=== PATIENT | female | born 1940 | race Caucasian/White ===

== ENCOUNTER 2018-07-31 19:51 | Emergency (ER) | payer MEDICARE, OTHER ==
[~2018-07-31] VITALS: Ht 167.6 cm; Wt 75.0 kg
[~2018-07-31 19:51] MED LIST: ARTHROTEC EC 71 EACH PO; CALCIUM 600+D T1 TA1 PO; COUMADIN5 MG PO; LIPITOR20 MG PO; MS CONTIN15 MG PO; NORCO 10/325 TA1 TA1 PO; NORCO 5/325 TAB1 TA1 PO; PLENDIL5 MG PO; PROPRANOLOL HCL20 MG PO; ULTRAM50 MG PO; ZOLOFT100 MG PO
[2018-07-31 20:04] VITALS: Ht 167.6 cm; Wt 75.0 kg
[2018-07-31] MEDS ORDERED: HYDROCODON-ACE1 EAC2 PO (22:39)
[2018-07-31 23:05] VITALS: BP 119/48
== END 2018-07-31 23:05 | disposition home or self-care (01) ==
LOC: D.ER 19:51
DX: S43.004A Unspecified dislocation of right shoulder joint, initial encounter (principal); W18.30XA Fall on same level, unspecified, initial encounter; Y93.89 Activity, other specified; Y92.019 Unspecified place in single-family (private) house as the place of occurrence of the external cause

== ENCOUNTER 2018-08-06 09:35 | Emergency (ER) | payer MEDICARE, OTHER ==
[~2018-08-06] VITALS: Ht 167.6 cm; Wt 75.0 kg
[~2018-08-06 09:35] MED LIST changes: +HYDROCODON-ACE1 EAC2 PO
[2018-08-06 09:40] VITALS: Ht 167.6 cm; Wt 75.0 kg
[2018-08-06 12:15] VITALS: BP 120/60
== END 2018-08-06 12:15 | disposition home or self-care (01) ==
LOC: D.ER 09:35
DX: S43.004A Unspecified dislocation of right shoulder joint, initial encounter (principal); X58.XXXA Exposure to other specified factors, initial encounter; Y93.89 Activity, other specified; Y92.019 Unspecified place in single-family (private) house as the place of occurrence of the external cause; I10 Essential (primary) hypertension

== ENCOUNTER → 2018-08-10 14:15 | Outpatient (CLI) | payer MEDICARE, OTHER ==
[2018-08-06 09:40] VITALS: BMI 26.7
== END | disposition home or self-care (01) ==
LOC: D.LABREF 14:15
DX: M25.511 Pain in right shoulder (principal); Z11.8 Encounter for screening for other infectious and parasitic diseases

== ENCOUNTER 2018-08-11 15:14 | Inpatient (IN) | payer MEDICARE, OTHER ==
[~2018-08-11] VITALS: Ht 165.1 cm; Wt 73.5 kg
[2018-08-26] MEDS ORDERED: OMEPRAZOLE40 MG PO (09:48)
[2018-08-26] MEDS ORDERED: BAYER CHEWABLE81 MG PO (09:48)
[2018-08-26] MEDS ORDERED: VOLTAREN75 MG PO (09:49)
[2018-08-26] MEDS ORDERED: FIBER-TABS625 MG PO (09:49)
[2018-08-26] MEDS ORDERED: IMODIUM2 MG PO (09:49)
[2018-08-26 10:41] LABS: BASOPHILS 0.3 % (0-2); EOSINOPHILS 1.9 % (0-7); HEMATOCRIT 42.5 % (36.0-48.0); HEMOGLOBIN 13.8 g/dL (12-16); IMMATURE GRANULOCYTES 0.2 % (0-5); LYMPHOCYTES 27.2 % (15-50); MCH 30.3 pg (26.0-34.0); MCHC 32.5 g/dL (31.0-37.0); MCV 93.2 fL (80.0-100.0); MEAN PLATELET VOLUME 10.7 fL (7.4-10.4); MONOCYTES 10.3 % (2-11); NEUTROPHILS 60.1 % (40-80); RBC 4.56 10x6/uL (4.00-5.40); RDW 14.7 % (11.5-14.5); WBC 5.9 10x3/uL (4.8-10.8)
[2018-08-26 10:42] LABS: PLATELET COUNT 188 10x3/uL (130-400)
[2018-08-26 10:50] LABS: ANION GAP 13.1 mmol/L (8-16); APTT 26.9 SECONDS (22.8-39.4); CALCIUM 8.5 mg/dL (8.5-10.1); CARBON DIOXIDE 28.5 mmol/L (21.0-32.0); INR 1.07 (0.85-1.17); POTASSIUM - SERUM 3.6 mmol/L (3.5-5.1); PROTIME 13.4 SECONDS (11.6-15.0)
[2018-08-26 12:39] LABS: APPEARANCE HAZY (CLEAR); BILIRUBIN NEGATIVE (NEGATIVE); COLOR YELLOW (YELLOW); EPITHELIAL CELLS 0-5 /hpf (0-5); GLUCOSE NEGATIVE (NEGATIVE); KETONE NEGATIVE (NEGATIVE); NITRITE NEGATIVE (NEGATIVE); PROTEIN NEGATIVE (NEGATIVE); RED CELLS - URINE 0-5 /hpf (0-5); SPECIFIC GRAVITY 1.015 (1.005-1.020); UROBILINOGEN NORMAL (NORMAL)
[2018-08-26 12:40] LABS: BACTERIA MODERATE /hpf (NONE SEEN); MUCUS <1+ /lpf (NONE SEEN); WHITE CELLS - URINE OCC /hpf (0-5)
--- NOTE | 2018-08-26 15:44 | NUR ---
1530-DR GUZMAN NOTIFIED OF PRE-OP UA RESULTS. HE SAYS PROCEED WITH SURGERY, NO NEED FOR ANTIBIOTICS.
[2018-08-30] VITALS (14 sets, daily range): BP systolic 91–124; BP diastolic 55–73; BMI 27.6; BMI 27.0
[2018-08-30] MEDS ORDERED: SULFAMETHOXAZOL1 TA3 PO (05:34)
--- NOTE | 2018-08-30 08:25 | NUR ---
PLASMA BLADE SET 6/8 BOVIE PAD RIGHT THIGH [id number] 05/20/2020
--- NOTE | 2018-08-30 10:30 | NUR ---
RECEIVED TO ROOM 2210 VIA BED FROM PACU. ROUSES EASILY TO VERBAL STIMULATION. DRESSING TO RIGHT SHOULDER DRY AND INTACT. REPORTS PAIN LEVEL 2. DENIES NEEDS. SKIN INTACT OTHERWISE. IN ROOM.
--- NOTE | 2018-08-30 14:16 | NUR ---
ATE A FEW BITES OF LUNCH. C/O NAUSEA AND PAIN. 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 GIVEN ONE PERCOCET PO AND 4MG ZOFRAN SLOW IVP FOR SAME. WILL MONITOR. UP TO BR WITH 2 PERSON AISSIST. VOIDED WITHOUT DIFFICULTY. SUKUMAR CARE PER SELF. REPOSITIONED IN BED FOR COMFORT. AT BEDSIDE.
--- NOTE | 2018-08-30 18:47 | NUR ---
SITTING UP IN BED. REFUSED TO EAT SUPPER. STATED IT MADE HER FEEL SICK. UP TO BR WITH ONE PERSON ASSIST. VOIDED WITHOUT DIFFICUTLY. SUKUMAR CARE PER SELF. REPOSITIONED IN BED FOR COMFORT.
--- NOTE | 2018-08-30 22:52 | NUR ---
1999) REC;D NAUSEATED NO EMESIS.SHOULDER IMMOBILIZER INTACT TO RIGHT ARM.POST-OP BLOCK TO SHOULDER FINGERS AND NAILBEDS PINK BLANCHES WELL,WIGGLES WITHOUT DIFFICULTY.C/O SOME NUMBNESS STILL. WILL CONTINUE TO MONITOR FOR ANY CHGES. IN NEUROVASCULAR STATUS AND FOLLOW CURRENT PLAN OF CARE
--- NOTE | 2018-08-31 04:20 | NUR ---
I have reviewed this patient and I concur with the Shift Assessment completed by the Licensed Practical Nurse today this shift.
[2018-08-31 04:41] LABS: HEMATOCRIT 35.8 % (36.0-48.0); HEMOGLOBIN 11.8 g/dL (12-16); MCH 29.9 pg (26.0-34.0); MCV 90.6 fL (80.0-100.0); MEAN PLATELET VOLUME 11.1 fL (7.4-10.4); RBC 3.95 10x6/uL (4.00-5.40); RDW 14.3 % (11.5-14.5); WBC 10.1 10x3/uL (4.8-10.8)
[2018-08-31 05:52] VITALS: BP 136/59
--- NOTE | 2018-08-31 07:30 | NUR ---
REQUESTED AND GIVEN ONE PERCOCET PO FOR C/O RIGHT SHOULDER PAIN LEVEL 9. WILL MONITOR.
--- NOTE | 2018-08-31 08:12 | NUR ---
AWAKE AND ALERT. ORIENTED X3. REPORTS SOME RELIEF FROM OXYCODONE AT THIS TIME. WILL CONTINUE TO MONITOR. LUNGS ARE CLEAR BILATERALLY, NO COUGH NOTED. SKIN IS INTACT WITHOUT REDNESS. RIGHT ARM IN IMMOBILYZER AT THIS TIME. DENIES NEEDS. AT BEDSIDE.
[2018-08-31 09:06] VITALS: Ht 165.1 cm; Wt 73.5 kg
--- NOTE | 2018-08-31 09:30 | NUR ---
UP TO BR WITH ONE PERSON ASSIST. VOIDED WITHOUT DIFFICULTY.
[2018-08-31 09:46] VITALS: BP 123/60
--- NOTE | 2018-08-31 11:19 | NUR ---
REPORTS PAIN WELL MANAGED WITH USE OF PERCOCET AND TORADOL. WILL CONTINUE TO MONITOR.
--- NOTE | 2018-08-31 11:34 | NUR ---
REQUESTED AND GIVEN ONE PERCOCET FOR PAIN LEVEL 3 AND ZOFRAN PO SL FOR C/O NAUSEA. WILL MONITRO.
--- NOTE | 2018-08-31 12:30 | NUR ---
LUNCH SERVED IN ROOM. ASSISTED HER TO EAT. DENIES NEEDS.
--- NOTE | 2018-08-31 13:35 | OP ---
PATIENT NAME: DILAN BATISTA MEDICAL RECORD: [id number] :42 LOCATION:D.MS [address] ADMISSION DATE:08/30/18 SURGEON: CHUCK GUZMAN MD DATE OF OPERATION: 08/30/2018 PREOPERATIVE DIAGNOSIS: Rotator cuff tear arthropathy of the right shoulder. POSTOPERATIVE DIAGNOSIS: Rotator cuff tear arthropathy of the right shoulder. PROCEDURE: Right reverse total shoulder arthroplasty. SURGEON: Chuck Guzman MD PIECE MAKER: LUKAS Blanchard. INTRAOPERATIVE COMPLICATIONS: None. SUMMARY OF PATHOLOGIC FINDINGS: Consistent with the preoperative diagnosis, the patient had massive rotator cuff tear with arthritis of the subacromial articulation. IMPLANTS USED: Arthrex Univers reverse total shoulder system, size 10 stem, size 32 right suture cup with a +3 polyethylene size 33 mm glenosphere on the 24 mm +2 lateralize baseplate. OPERATIVE SUMMARY IN DETAIL: After obtaining the appropriate preoperative orthopedic surgery consent as well as anesthetic consultation, evaluation, and clearance, the patient was brought to the operating room and placed on the operating room table in supine position. After general laryngeal mask airway was administered, the patient was placed in beach chair position. All pressure points were well padded. She was held firmly to the operating table using the vacuum pack suction system. Right upper extremity and shoulder were then prepped and draped in routine sterile fashion. The arm was held in Trimano arm holding device. Deltopectoral incision was taken down. The deltoid was then gently retracted laterally while the conjoined tendon was gently retracted medially. Subscapularis was taken down. At this point, the humeral head was then dislocated through the wound. Proximal humeral head cut was made using humeral head cutting guide for the Univers reverse system. Serial and sequential reaming and broaching were done for a size 10, size 10 trial was left into place with a proximal cut protector guide put into place. Glenoid was then approached. Circumferential labrectomy was then followed by center guide pin placement with an inferior degree tilt at 15 degrees. Reaming was then followed by tapping for a size 20 post screw. The entire construct was then inserted with excellent fit and good posterior screw fixation and then the superior, inferior, anterior, and posterior screws were put into place. Likewise, the glenosphere was then tamped into place on the Harley taper. Central screw was set with good fixation. At this point, the 10 x 36 +2 right cup was assembled on the back table and then put into place. Trials were undertaken. It was felt that the +3 was most appropriate. A +3 polyethylene was put in place. Shoulder was reduced, taken through range of motion and found to be stable in all planes. Subscapularis was reapproximated to the lesser tuberosity with a transosseous #2 Ethibond. Biceps was tenodesed and soft tissue biceps tenodesis was included in this closure. Wound was then further irrigated laden with antibiotics a gram of vancomycin and a gram of tobramycin. Final skin closure was achieved by Jitendra Wilcox with #1 Vicryl followed by 2-0 Vicryl and skin michael. Sterile OPERATIVE REPORT [id number] DILAN BATISTA dressings were applied. The patient was awakened and taken to recovery room in stable condition. All final needle and sponge counts were correct. TRANSINT:[id number] Voice Confirmation ID: [id number] DOCUMENT ID: [id number] THOMAS PAULINO, CHUCK CARRASCO at 1335 CC: [id number] DICTATION DATE: 08/30/18 0913 PATIENT CARRIER: 08/30/[address] [facility] [address] [place] [address]
[2018-08-31 15:10] VITALS: BP 119/53
--- NOTE | 2018-08-31 16:27 | MORECARE ---
CASE MANAGEMENT DISCHARGE SUMMARY PATIENT: DILAN BATISTA UNIT: [id number] ADM DATE: 08/30/18 AGE: 77 : 41 SEX: F ROOM/BED: D.2210 AUTHOR: GARY ROD PHYSICIAN: REFERRING PHYSICIAN: CHUCK GUZMAN MD DATE OF SERVICE: 08/31/18 Discharge Plan Patient Name: DILAN BATISTA Facility: [facility]:[place] : 1940 Planned Disposition: Home or Self Care Anticipated Discharge Date: Discharge Date: Expected LOS: Initial Reviewer: [email or web address] Initial Review Date: 08/30/2018 Generated: 08/31/18 5:27 pm Patient Name: DILAN BATISTA Page [id number] at 1627 All edits/amendments must be made on the electronic document DICTATION DATE: 08/31/181626 CHILD ADVOCATE: OLIVER 08/31/181626 RPT#: [id number] DC DATE: STATUS: ADM IN [facility] [address] [place] [address] END OF REPORT
--- NOTE | 2018-08-31 16:37 | MORECARE ---
CASE MANAGEMENT DISCHARGE SUMMARY PATIENT: DILAN BATISTA UNIT: [id number] ADM DATE: 08/30/18 AGE: 77 : 41 SEX: F ROOM/BED: D.2210 AUTHOR: MARCELDOC PHYSICIAN: REFERRING PHYSICIAN: CHUCK GUZMAN MD DATE OF SERVICE: 08/31/18 Discharge Plan Patient Name: DILAN BATISTA Facility: [facility]:[place] : 1940 Planned Disposition: Home or Self Care Anticipated Discharge Date: Discharge Date: Expected LOS: Initial Reviewer: [email or web address] Initial Review Date: 08/30/2018 Generated: 08/31/18 5:36 pm Comments DCP- Discharge Planning Updated by [email or web address]: Fatimah Cruz on 08/31/18 3:[address] Patient Name: DILAN BATISTA Admission Status: Elective Accout number: [id number] Admission Date: 08-30-2018 : 1940 Admission Diagnosis: Attending: CHUCK GUZMAN Current LOS: 1 Anticipated DC Date: Planned Disposition: Home or Self Care Primary Insurance: MEDICARE A & B Discharge Planning Comments: CM met with patient to complete initial dc planning assessment. CM educated patient on the CM role and verbal consent given by patient to complete assessment. Patient lives at home with her where she is independent with her care at home. At discharge patient plans to return home and feels this is a safe discharge. CM discussed availability of home health, rehab services, and medical equipment. Patient denied known discharge needs at this time. CM will continue to follow and will assist as needed with dc plans/needs. Patient has her sling on and is at bedside, he will be her driver manager home Electrician Machine [employer]: Fatiamh Cruz DCPIA - Discharge Planning Initial Assessment Updated by [email or web address]: Fatimah Cruz on 08/31/18 4:29 pm * Is the patient Alert and Oriented? Yes * How many steps to enter\exit or inside your home? * PCP [facility] * Pharmacy [address] * Preadmission Environment Home with Family * ADLs Independent * Equipment None * List name and contact numbers for known caregivers / representatives who currently or will assist patient after discharge: CRIS BATISTA [phone] * Verbal permission to speak to the caregivers and representatives has been obtained from the patient. N/A * Community resources currently utilized None * Additional services required to return to the preadmission environment? No * Can the patient safely return to the preadmission environment? Yes * Has this patient been hospitalized within the prior 30 days at any hospital? No Last DP export: 08/31/18 3:27 p Patient Name: DILAN BATISTA Page [id number] at 1637 All edits/amendments must be made on the electronic document DICTATION DATE: 08/31/181635 HEALTH CARE MARKETING SPECIALIST: OLIVER 08/31/181635 RPT#: [id number] DC DATE: STATUS: ADM IN [facility] [address] [place] [address] END OF REPORT
[2018-08-31] MEDS ORDERED: PERCOCET 10-321 EAC1 PO (16:44)
[2018-08-31] MEDS ORDERED: ZOFRAN ODT4 MG/UDTAB PO (16:55)
--- NOTE | 2018-08-31 17:39 | NUR ---
DISCHARGED TO HOME AMBULATORY WITH . DISCHARGE INSTRUCTIONS GIVEN BOTH VERBALLY AND WRITTEN. ALL QUESTIONS ANSWERED. PATIENT AND VERBALIZED UNDERSTANDING OF SAME. ALL BELONGINGS WITH PATIENT. IV TO LEFT WRIST D/C WITH CATHETER INTACT.
--- NOTE | 2018-09-01 15:12 | MORECARE ---
CASE MANAGEMENT DISCHARGE SUMMARY PATIENT: DILAN BATISTA UNIT: [id number] ADM DATE: 08/30/18 AGE: 77 : 41 SEX: F ROOM/BED: D.2210 AUTHOR: MARCEL,DOC PHYSICIAN: REFERRING PHYSICIAN: CHUCK GUZMAN MD DATE OF SERVICE: 09/01/18 Discharge Plan Patient Name: DILAN BATISTA Facility: [facility]:[place] : 1940 Planned Disposition: Home or Self Care Anticipated Discharge Date: Discharge Date: 08/31/2018 Expected LOS: Initial Reviewer: [email or web address] Initial Review Date: 08/30/2018 Generated: 09/01/18 4:12 pm Comments DCP- Discharge Planning Updated by [email or web address]: Fatmiah Cruz on 08/31/18 3:[address] Patient Name: DILAN BATISTA Admission Status: Elective Accout number: [id number] Admission Date: 08-30-2018 : 1940 Admission Diagnosis: Attending: CHUCK GUZMAN Current LOS: 1 Anticipated DC Date: Planned Disposition: Home or Self Care Primary Insurance: MEDICARE A & B Discharge Planning Comments: CM met with patient to complete initial dc planning assessment. CM educated patient on the CM role and verbal consent given by patient to complete assessment. Patient lives at home with her where she is independent with her care at home. At discharge patient plans to return home and feels this is a safe discharge. CM discussed availability of home health, rehab services, and medical equipment. Patient denied known discharge needs at this time. CM will continue to follow and will assist as needed with dc plans/needs. Patient has her sling on and is at bedside, he will be her recycler forklift driver truck driver home Hair Preparer: Fatimah Cruz DCPIA - Discharge Planning Initial Assessment Updated by [email or web address]: Fatimah Cruz on 08/31/18 4:29 pm * Is the patient Alert and Oriented? Yes * How many steps to enter\exit or inside your home? * PCP [facility] * Pharmacy [address] * Preadmission Environment Home with Family * ADLs Independent * Equipment None * List name and contact numbers for known caregivers / representatives who currently or will assist patient after discharge: CRIS BATISTA [phone] * Verbal permission to speak to the caregivers and representatives has been obtained from the patient. N/A * Community resources currently utilized None * Additional services required to return to the preadmission environment? No * Can the patient safely return to the preadmission environment? Yes * Has this patient been hospitalized within the prior 30 days at any hospital? No Last DP export: 08/31/18 3:37 p Patient Name: DILAN BATISTA Page 75915 at 1512 All edits/amendments must be made on the electronic document DICTATION DATE: 09/01/18 151 MEAT STOCK CLERK: OLIVER 09/01/18 151 RPT#: [id number] DC DATE:08/31/18 STATUS: DIS IN [facility] [address] [place] [address] END OF REPORT
== END 2018-08-31 17:41 | disposition home or self-care (01) | DRG 483 ==
LOC: D.MS 08-30 05:05 → D.SDCHOLD 08-30 05:05 → D.MS 08-30 10:07
PROVIDERS: ADMIT Orthopaedic Surgery; ATTEND Orthopaedic Surgery
PROC: 0RRJ00Z Replacement of Right Shoulder Joint with Reverse Ball and Socket Synthetic Substitute, Open Approach (ICD-10-PCS; principal; 2018-08-30 07:30)
DX: M75.101 Unspecified rotator cuff tear or rupture of right shoulder, not specified as traumatic (principal); M19.011 Primary osteoarthritis, right shoulder

== ENCOUNTER → 2018-11-11 08:04 | Outpatient (CLI) | payer MEDICARE, OTHER ==
[2018-10-28 10:12] VITALS: BMI 26.9
[~2018-11-11 08:04] MED LIST changes: +BAYER CHEWABLE81 MG PO; +FIBER-TABS625 MG PO; +IMODIUM2 MG PO; +OMEPRAZOLE40 MG PO; +PERCOCET 10-321 EAC1 PO; +SULFAMETHOXAZOL1 TA3 PO; +VOLTAREN75 MG PO; +ZOFRAN ODT4 MG/UDTAB PO
== END | disposition home or self-care (01) ==
LOC: D.US 08:04
PROVIDERS: ATTEND Clinical Nurse Specialist Family Health
DX: R22.32 Localized swelling, mass and lump, left upper limb (principal)

== ENCOUNTER → 2018-11-18 09:28 | Outpatient (CLI) | payer MEDICARE, OTHER | END | disposition home or self-care (01) | LOC: D.MRI 09:28 | DX: R22.32 Localized swelling, mass and lump, left upper limb (principal) ==

== ENCOUNTER → 2018-11-22 10:48 | Day surgery (SDC) | payer MEDICARE, OTHER ==
[~2018-11-22] VITALS: Ht 167.6 cm; Wt 72.6 kg
[~2018-11-22 10:48] MED LIST changes: +HYDROCODON-ACE1 EA10 PO
[2018-11-22 11:28] LABS: BASOPHILS 0.4 % (0-2); EOSINOPHILS 1.5 % (0-7); HEMATOCRIT 36.8 % (36.0-48.0); LYMPHOCYTES 22.8 % (15-50); MCH 30.2 pg (26.0-34.0); MCHC 32.6 g/dL (31.0-37.0); MCV 92.5 fL (80.0-100.0); MEAN PLATELET VOLUME 10.6 fL (7.4-10.4); MONOCYTES 10.8 % (2-11); NEUTROPHILS 64.5 % (40-80); PLATELET COUNT 186 10x3/uL (130-400); RBC 3.98 10x6/uL (4.00-5.40); RDW 13.9 % (11.5-14.5); WBC 5.4 10x3/uL (4.8-10.8)
[2018-11-22 11:31] LABS: ANION GAP 12.4 mmol/L (8-16); CALCIUM 9.1 mg/dL (8.5-10.1); CARBON DIOXIDE 27.9 mmol/L (21.0-32.0); CREATININE - SERUM 0.9 mg/dL (0.6-1.3); POTASSIUM - SERUM 5.3 mmol/L (3.5-5.1)
[2018-11-22 12:51] VITALS: Ht 167.6 cm; Wt 72.6 kg
--- NOTE | 2018-11-22 15:04 | NUR ---
CARE ASSUMED FROM CHARAN MENDOZA RN
--- NOTE | 2018-11-23 11:46 | OP ---
PATIENT NAME: DILAN BATISTA MEDICAL RECORD: [id number] :42 LOCATION:D.OPS ADMISSION DATE: SURGEON: CHUCK GUZMAN MD DATE OF OPERATION: 11/22/2018 PREOPERATIVE DIAGNOSIS: Mass of the right upper arm, anterior aspect. POSTOPERATIVE DIAGNOSIS: Mass of the right upper arm, anterior aspect. PROCEDURE: Excision of large anterior mass. SURGEON: Chuck Guzman MD REFRIGERATOR CAR ICER: Mildred Watt ANESTHESIA: General. INTRAOPERATIVE COMPLICATIONS: None. SUMMARY OF PATHOLOGIC FINDINGS: The patient had substantial amount of tissue necrosis, mostly fat necrosis. It was excised in an elliptical fashion and all portions of the hardened fat were taken out. The axillary vein was noted. It was not thrombosed and it was protected throughout the case. Dissection was carried out across the top of this. OPERATIVE SUMMARY IN DETAIL: After obtaining the appropriate preoperative orthopedic surgery consent as well as anesthetic consultation, evaluation, and clearance, the patient was brought to the operating room and placed on the operating table in the supine position. After general laryngeal mask airway was administered, the patient's right upper extremity was prepped and draped in routine sterile fashion. A planned incision was drawn in an elliptical fashion. It was approximately 6 cm in total by approximately 4 cm wide. Very large elliptical incision was taken down for this very substantial mass. The mass was then carried down to the level of the fascia. All portions of the necrotic and hard subcutaneous fat along with all the superficial infectious-appearing material and the eschar about the top of the mass were all taken down in one large excision. This was sent to pathology for permanent section. The wound was then copiously irrigated and closed by Mildred Watt with 2-0 Vicryl followed by 4-0 Prolene. Sterile dressings were applied. The patient was awakened and taken to the recovery room in stable condition. All final needle and sponge counts were correct. TRANSINT:[id number] Voice Confirmation ID: [id number] DOCUMENT ID: [id number] CHUCK GUZMAN MD at 1146 CC: [id number] DICTATION DATE: 11/22/18 1719 INTERVENTIONAL RADIOLOGIST: 11/22/182019 [facility] 11/22/18 [place] [address]
== END | disposition home or self-care (01) ==
LOC: D.OPS 10:48
PROVIDERS: Anesthesiology; ATTEND Orthopaedic Surgery
DX: M79.89 Other specified soft tissue disorders (principal); Z01.812 Encounter for preprocedural laboratory examination

== ENCOUNTER → 2020-03-29 09:05 | Outpatient (CLI) | payer MEDICARE, OTHER ==
[2018-11-22 12:51] VITALS: BMI 25.8
== END | disposition home or self-care (01) ==
LOC: D.HCCARDIO 09:05
PROVIDERS: ATTEND Internal Medicine Cardiovascular Disease
DX: I48.91 Unspecified atrial fibrillation (principal)

== ENCOUNTER 2020-08-29 11:31 | Day surgery (SDC) | payer MEDICARE ==
[~2020-08-29] VITALS: Ht 167.6 cm; Wt 82.5 kg
--- NOTE | ~2020-08-29 | HEMODYNAMI ---
PATIENT:DILAN BATISTA MEDICAL RECORD: [id number] : 42 LOCATION:[facility] ADMISSION DATE: 08/29/20 Generatedon:113:35 Patient name: DILAN BATISTA Patient #: [id number] SSN: : 1940 Date of study: 08/29/2020 Page: Of Hemodynamic Procedure Report Patient Data Patient Demographics Procedure consent was obtained First Name: DILAN Gender: Female Last Name: LYNNE : 1940 Middle Initial: T Age: 79 year(s) Patient #: [id number] Race: Unknown Additional ID: [id number] Contact details Address: [address] [place] [address] State: [place] City: [place] Zip code: [address] Past Medical History Allergies: No known allergies Admission Admission Data Admission Date: 08/29/2020 Admission Time: 11:31 Height (in.): 65.75 BSA: 1.91 (m2) Height (cm.): 167 BMI: 29.4 (kg/m2) Weight (lbs.): 180.78 Weight (kg.): 82 Lab Results Lab Result Date: 08/29/2020 Lab Result Time: 0:00 Biochemistry Name Units Result Min Max BUN mg/dl 13 --(--*-)-- 7 18 Creatinine mg/dl 0.8 --(-*--)-- 0.6 1.3 eGFR ml/min 73.10906 *-(----)-- 90 120 NONAFRICAN Procedure Procedure Types Cath Procedure Diagnostic Procedure Cardioversion External Procedure Description Procedure Date Procedure Date: 08/29/2020 Procedure Start Time: 13:26 Procedure End Time: 13:34 Procedure Staff Name Function Sony Ventura MD Performing Physician Viola Lutz RT Monitor Maria Cortez RT Monitor Mounika Fortune RN Nurse Ghulam Castro CRNA Additional personnel Procedure Data Cath Procedure Fluoroscopy Diagnostic fluoroscopy Total fluoroscopy Time: 0 time: 0 min min Diagnostic fluoroscopy Total fluoroscopy dose: 0 dose: 0 mGy mGy Estimated blood loss: 0 ml Procedure Complications No complications Procedure Medications Medication Administration Route Dosage Oxygen etCO2 Nasal cannula 2 l/min Refer to Anesthesia Notes for Sedation Medications Hemodynamics Rest BSA: 1.91 (m2) O2 Consumption: Estimated: 184.88 (ml/min) O2 Consumption indexed : Estimated:96.8 (ml/min/m) Heart Rate: 87 (bpm) Snapshots Pre Cath Intra NCS Post Cath Vital Signs Time Heart Resp SPO2 etCO2 NIBP (mmHg) Rhythm Pain Sedation Rate (ipm) (%) (mmHg) Status Level (bpm) 13:15:00 93 25 99 36.8 Measuring NSR 0 (11) 10(A) , No pain 13:15:18 82 21 98 26.2 137/82(117) A-Fib 0 (11) 10(A) , No pain 13:19:38 83 12 99 36 132/69(110) A-Fib 0 (11) 10(A) , No pain 13:23:52 81 14 99 30.8 130/80(96) A-Fib 0 (11) 10(A) , No pain 13:28:20 50 10 98 21 137/52(116) A-Fib 0 (11) 9(A) , No pain 13:32:39 54 25 98 27.7 103/52(73) SB 0 (11) 10(A) , No pain Medications Time Medication Route Dose Verified Delivered Reason Notes Effective ness by by 13:15:23 Oxygen etCO2 2 Sony Reneeie used for Nasal l/min Lorenzo Fortune RN procedure cannula 13:15:28 Refer to Sony Buffie Anesthesia Lorenzo Fortune RN Notes for Sedation Medications Procedure Log Time Note 12:54:52 Informed consent obtained and on chart 12:55:14 Procedure Status Cardioversion. 12:55:17 Maria Cortez RT(R) sent for patient. Start room use. 12:55:17 Time tracking: Regular hours (M-F 7:00 - 5:00) 12:55:23 Plan of Care:Hemodynamics will remain stable., Cardiac rhythm will remain stable., Comfort level will be maintained., Respiratory function will remain adequate., Patient/ family verbilizes understanding of procedure., Procedure tolerated without complication., Recovers from procedure without complications.. 12:58:48 Patient Weight : 180.78 lbs 12:58:50 Patient Height : 65.75 inches 13:00:42 Lab Result : BUN 13 mg/dl 13:00:42 Lab Result : eGFR NONAFRICAN 73.37397 ml/min 13:00:42 Lab Result : Creatinine 0.8 mg/dl 13:01:04 Patient allergic to No known allergies 13:01:11 H&P Date Dictated: 08/22/2020 Within 30 days and on chart., H&P Addendum completed by physician on day of procedure. (MUST COMPLETE FOR ALL OUTPATIENTS). 13:01:36 Patient arrived from Pre/Post Procedure Room to CCL 2. Patient remains on bed/stretcher for procedure. 13:01:37 Warm blankets applied, and levi hugger turned on for patient comfort. 13:01:37 Correct patient and procedure confirmed by team. 13:01:38 ECG and BP/O2 sat monitors applied to patient. 13:05:11 Vital chart was started 13:05:12 Baseline sample Acquired. 13:05:16 Rhythm: atrial fibrillation 13:05:18 Full Disclosure recording started 13:05:18 Pre-procedure instructions explained to patient. 13:05:19 Pre-op teaching completed and patient verbalized understanding. 13:05:25 Family in patients room. 13:05:26 Patient NPO since Midnight. 13:05:29 Is the patient allergic to Iodine/contrast media? No. 13:05:31 Is patient on blood thinner?Yes 13:05:34 ACC The patient was administered the following blood thiners within the last 24 hours: Eliquis 13:05:36 Patient diabetic? No. 13:05:39 Previous problem with sedation/anesthesia? No ? 13:05:47 Snore? Yes 13:05:48 Sleep apnea? No 13:05:51 Deviated septum? No 13:06:16 Opens mouth fully? Yes 13:06:27 Sticks out tongue? Yes 13:06:43 Airway obstruction? No ? 13:06:47 Dentures? No ? 13:07:30 Ghulam Castro CRNA present and monitoring patient for TIVA. 13:15:23 Oxygen 2 l/min etCO2 Nasal cannula was administered by Mounika Fortune RN; used for procedure; Verbal order read back and verified. 13:15:28 Refer to Anesthesia Notes for Sedation Medications was administered by Mounika Fortune RN; ; Verbal order read back and verified. 13:20:16 Quick Combo opened to sterile field. 13:24:54 --------ALL STOP TIME OUT------ 13::55 Final Timeout: patient, procedure, and site verified with staff and physician. All members of the team are in agreement. 13::59 Fire Safety Assessment: C--Open oxygen or nitrous oxide is being used. 13:25:01 Physical assessment completed. ASA score P 2 - A patient with mild systemic disease as per Sony Ventura MD. 13:25:04 Sedation plan: TIVA Medication:Propofol 13:26:03 Procedure started. 13:26:04 ------Cardioversion------ 13:27:35 Quick combo pads placed on patients chest and back. 13:27:37 Defibrillator synced and charged to 200 Joules. 13:27:55 Shock delivered. 13:28:11 Patient cardioverted to sinus bradycardia. 13:28:40 Procedure ended.(Physican Out) 13:29:38 Fluoroscopy time 00.00 minutes. 13:29:59 Flurop Dose total: 0 13:29:59 Fluoroscopy dose: 0 mGy 13:30:01 Dose Area Product 0 mGy/cm. 13:30:14 Post-procedure physical assessment completed. ASA score P 2 - A patient with mild systemic disease as per Sony Ventura MD. 13:30:30 Post procedure rhythm: sinus bradycardia 13:30:33 Estimated blood loss: 0 ml 13:30:34 Post procedure instruction explained to patient.Patient verbalizes understanding. 13:30:35 Patient needs reinforcement of post procedure teaching. 13:32:21 Procedure and supply charges have been captured, reviewed, submitted and are correct. 13:32:28 Procedure Complication : No complications 13:32:34 Operative report dictated upon procedure completion. 13:32:35 See physician's report for complete and final results. 13:32:36 Report given to Pre/Post Procedure Room. 13:32:39 Patient transfered to Pre/Post Procedure Room with Bed. 13:34:12 Vital chart was stopped 13:34:15 Procedure ended. 13:34:15 Full Disclosure recording stopped 13:34:19 End room use (Document Last) 13:34:34 End room use (Document Last) 13:34:51 End room use (Document Last) Device Usage Item Manufacture Quantity Catalog Hospital Part Current Minimal Lot# / Name Number Charge Number Stock Stock Deedee al# Code [facility] 1 [id number] Combo Signature Audit Rew Stage Time Signature Unsigned Intra-Procedure 08/29/2020 Viola Lutz 1:34:34 PM RT(R) Intra-Procedure 08/29/2020 Mounika Fortune RN 1:34:51 PM Intra-Procedure 08/29/2020 Sony Ventura MD 1:35:11 PM [facility] [address] [place] [id number]
[2020-08-29] MEDS ORDERED: BETAPACE 80 MG80 MG PO (12:17)
[2020-08-29] MEDS ORDERED: LOPRESSOR25 MG PO (12:17)
[2020-08-29] MEDS ORDERED: ELIQUIS5 MG PO (12:17)
[2020-08-29] MEDS ORDERED: FIBER LAXATIVE500 MG PO (12:18)
[2020-08-29] MEDS ORDERED: CALTRATE+D3 PL1 EACH PO (12:18)
[2020-08-29 12:19] VITALS: BP 138/82; Ht 167.6 cm; Wt 82.5 kg
[2020-08-29] MEDS ORDERED: VITAMIN E1000 UNI1 PO (12:19)
[2020-08-29] MEDS ORDERED: VITAMIN D325 MC1 PO (12:20)
[2020-08-29] MEDS ORDERED: VITAMIN C500 M1 PO (12:20)
[2020-08-29 12:42] LABS: ANION GAP 12.5 mmol/L (8-16); CALCIUM 8.7 mg/dL (8.5-10.1); CARBON DIOXIDE 27.3 mmol/L (21.0-32.0); CREATININE - SERUM 0.8 mg/dL (0.6-1.3); POTASSIUM - SERUM 3.8 mmol/L (3.5-5.1)
[2020-08-29 12:51] LABS: INR 1.22 (0.85-1.17); PROTIME 14.3 SECONDS (11.6-15.0)
--- NOTE | 2020-08-29 13:40 | NUR ---
ARRIVES TO ROOM 4 S/P CARDIOVERSION. AAOX3, PLACED ON MONITORS ALARMS ON, SEE OIL TRANSPORT DRIVER, IV INFUSING PER ORDERS, SPOUSE AT BEDSIDE , PT DENIES PAIN OR NEEDS AT THIS TIME. CALL LIGHT WITH IN REACH, UPDATE OF PLAN OF CARE GIVEN TO PT AND SPOUSE, QUESTIONS AND CONCERNS ADDRESSED
--- NOTE | 2020-08-29 13:54 | NUR ---
DR FLORES CALLED PT SPOUSE AND UPDATED ON PT STATUS
--- NOTE | 2020-08-29 14:10 | NUR ---
PT RESTING QUIETLY, AAOX3, VSS, SB NO ECTOPY, IV INFUSING PER ORDERS, ALARMS ON MONITORS, DENIES PAIN OR NEEDS, PO FLUIDS AND NUTRITION OFFERED PT DECLINES STATES SHE WANTS TO WAIT AND HAVE FOOD AT HOME. DENIES BATHROOM NEEDS, SPOUSE AT BEDSIDE, CALL LIGHT WITHIN REACH
[2020-08-29 14:18] LABS: BASOPHILS 0.4 % (0-2); EOSINOPHILS 1.6 % (0-7); HEMATOCRIT 40.7 % (36.0-48.0); HEMOGLOBIN 13.6 g/dL (12-16); IMMATURE GRANULOCYTES 0.5 % (0-5); LYMPHOCYTE ABS# 1.21 10x3/uL (1.18-3.74); LYMPHOCYTES 21.2 % (15-50); MCH 30.4 pg (26.0-34.0); MCHC 33.4 g/dL (31.0-37.0); MCV 91.1 fL (80.0-100.0); MEAN PLATELET VOLUME 10.6 fL (7.4-10.4); MONOCYTES 15.3 % (2-11); NEUTROPHIL ABS# 3.48 10x3/uL (1.56-6.13); PLATELET COUNT 165 10x3/uL (130-400); RBC 4.47 10x6/uL (4.00-5.40); RDW 13.5 % (11.5-14.5); WBC 5.7 10x3/uL (4.8-10.8)
--- NOTE | 2020-08-29 14:25 | NUR ---
PT RESTING QUIETLY, SPOUSE AT BEDSIDE, AAOX3, VSS, SB NO ECTOPY ALARMS ON MONITORS, IV INFUSING PER ORDERS, DENIES PAIN OR NEEDS, DISCHARGE TEACHING STARTED, DENIES BATHROOM NEEDS, CALL LIGHT WITHIN REACH, SIDERAIL UP X 2
--- NOTE | 2020-08-29 14:40 | NUR ---
IV REMOVED CATHETER INTACT, REMAINS IN SB WITH NO ECTOPY PER MONITORS, DISCHARGE INSTRUCTIONS REVIEWED PT AND SPOUSE VERBALIZED UNDERSTANDING, PT DENIES PAIN OR NEEDS AT THIS TIME, PT AMBULATES TO BATHROOM VOIDS WITH OUT DIFFICULTY
--- NOTE | 2020-08-29 14:45 | NUR ---
PT DISCHARGED TO PRIVATE VEHICLE / SPOUSE VIA WHEELCHAIR, PT HAS NO NEEDS OR PAIN AT THIS TIME, ALL DISCHARGE TEACHING COMPLETE AND PT VERBALIZED UNDERSTANDING.
== END 2020-08-29 14:45 | disposition home or self-care (01) ==
LOC: D.CATH 11:31
PROVIDERS: ATTEND Internal Medicine Cardiovascular Disease
DX: I48.91 Unspecified atrial fibrillation (principal); E78.5 Hyperlipidemia, unspecified; I10 Essential (primary) hypertension; K21.9 Gastro-esophageal reflux disease without esophagitis